=== PATIENT | male | born 2000 | race Caucasian/White ===

== ENCOUNTER 2022-05-18 02:11 | Emergency (ER) | payer OTHER ==
[~2022-05-18] VITALS: Ht 167.6 cm; Wt 74.8 kg
--- NOTE | 2022-05-18 03:05 | NUR ---
Dr. Wright at bedside. MSE in progress.
[2022-05-18] MEDS ORDERED: ONDANSETRON 4 MG/2 ML VIAL ONE (03:10)
[2022-05-18] MEDS ORDERED: IV NORMAL SALINE 1000 ML BAG IV ONE (03:15)
[2022-05-18] MEDS ORDERED: ONDANSETRON 4 MG/2 ML VIAL IV ONE (03:15)
[2022-05-18 03:29] LABS: HEMATOCRIT 48.6 % (36.7-47.1); MEAN CORPUSCULAR HEMOGLOBIN 29.1 uug (23.8-33.4); MEAN CORPUSCULAR VOLUME 83.2 fL (73.0-96.2); PLATELET COUNT (AUTO) 234 K/uL (152-348)
[2022-05-18 03:35] LABS: CREATININE 1.2 mg/dL (0.6-1.3); POTASSIUM 4.4 mmol/L (3.5-5.1)
[2022-05-18] MEDS ORDERED: DICYCLOMINE HCL LIQ 10 MG/5 ML UDC ONE (03:36)
[2022-05-18 03:41] LABS: BILIRUBIN,DIRECT 0.1 mg/dL (0.0-0.2); BILIRUBIN,TOTAL 0.4 mg/dL (0.2-1.0); TOTAL PROTEIN, SERUM 8.4 g/dL (6.4-8.2)
[2022-05-18] MEDS ORDERED: DICYCLOMINE HCL LIQ 10 MG/5 ML UDC PO ONE (03:45)
[2022-05-18] MEDS ORDERED: ONDA4TAB5 PO (04:34)
[2022-05-18] MEDS ORDERED: DICY20TA11 PO (04:34)
--- NOTE | 2022-05-18 05:06 | NUR ---
Patient discharged to home in stable condition. A/O x 4. NAD noted. Ambulatory with a steady gait. All belongings [facility]. Written and verbal after care instructions given. Patient verbalizes understanding of instructions. Stressed follow up or return to ER for worsening s/s.
[2022-05-18 05:08] VITALS: BP 144/83
== END 2022-05-18 05:09 | disposition home or self-care (01) ==
LOC: ER 02:22
DX: R10.9 Unspecified abdominal pain (principal); R11.0 Nausea; D72.829 Elevated white blood cell count, unspecified
CPT/HCPCS: 99284; 96374; 96361; 80076; 80048; 83690; 85025; 36415; 74022; J2405; J7040; A4663

== ENCOUNTER 2024-03-04 11:39 | Emergency (ER) | payer OTHER ==
[~2024-03-04] VITALS: Ht 167.6 cm; Wt 71.7 kg
[~2024-03-04 11:39] MED LIST: DICY20TA11 PO; ONDA4TAB5 PO
[2024-03-04 12:04] LABS: *BILIRUBIN,URIN NEGATIVE (NEGATIVE); *BLOOD, URINE NEGATIVE (NEGATIVE); *CLARITY,URINE CLEAR (CLEAR); *COLOR,URINE YELLOW (YELLOW); *KETONES,URINE NEGATIVE (NEGATIVE); *PROTEIN,URINE NEGATIVE (NEGATIVE); *UROBILINOGEN,URINE 0.2 E.U./dl (NORMAL); LEUKOCYTE ESTERASE ,URINE NEGATIVE (NEGATIVE); NITRITE, URINE NEGATIVE (NEGATIVE); PH,URINE 6.5 (5.0-8.0); UGLUCOSE NEGATIVE (NEGATIVE)
[2024-03-04 12:06] LABS: BASOPHILS % (AUTO) 0.5 % (0.0-2.0); EOSINOPHILS % (AUTO) 0.1 % (0.0-7.0); HEMATOCRIT 48.9 % (36.7-47.1); HEMOGLOBIN 17.1 g/dL (12.5-16.3); LYMPHOCYTES # (AUTO) 1.4 K/uL (0.8-4.8); LYMPHOCYTES % (AUTO) 16.6 % (20.5-51.5); MEAN CORPUSCULAR HGB CONC 35 g/dL (32.5-36.3); MEAN CORPUSCULAR VOLUME 82.9 fL (73.0-96.2); MONOCYTES # (AUTO) 0.4 K/uL (0.1-1.30); MONOCYTES % (AUTO) 5.2 % (0.0-11.0); NEUTROPHILS # (AUTO) 6.5 K/uL (1.8-8.9); NEUTROPHILS % (AUTO) 77.6 % (38.5-71.5); PLATELET COUNT (AUTO) 256 K/uL (152-348); RED CELL DISTRIBUTION WIDTH 12.4 % (12.1-16.2); WHITE BLOOD COUNT (AUTO) 8.4 K/uL (3.6-10.2)
[2024-03-04] MEDS ORDERED: ONDANSETRON ODT 4 MG TAB.RAPDIS ONE (12:17)
[2024-03-04] MEDS ORDERED: MAG HYDROX/AL HYDROX/SIMETH 30 ML LIQUID UDC ONE (12:17)
[2024-03-04] MEDS ORDERED: FAMOTIDINE 20 MG TABLET ONE (12:17)
[2024-03-04] MEDS ORDERED: LIDOCAINE VISCUS 2% 15 ML UDC ONE (12:17)
[2024-03-04 12:18] LABS: CALCIUM 9.8 mg/dL (8.5-10.1); POTASSIUM 3.7 mmol/L (3.5-5.1)
[2024-03-04] MEDS: MAG HYDROX/AL HYDROX/SIMETH 30 ML LIQUID UDC PO ONE (12:20)
[2024-03-04] MEDS: FAMOTIDINE 20 MG TABLET PO ONE (12:20)
[2024-03-04] MEDS: LIDOCAINE VISCUS 2% 15 ML UDC MM ONE (12:20)
[2024-03-04] MEDS: ONDANSETRON ODT 4 MG TAB.RAPDIS SL ONE (12:20)
[2024-03-04 12:22] LABS: DIFFERENTIAL COMMENT 1
[2024-03-04] MEDS ORDERED: ONDA4TAB11 PO (12:22)
[2024-03-04] MEDS ORDERED: FAMO-132 PO (12:22)
[2024-03-04 12:24] LABS: ALBUMIN 4.5 g/dL (3.4-5.0); BILIRUBIN,DIRECT 0.2 mg/dL (0.0-0.2); BILIRUBIN,TOTAL 0.9 mg/dL (0.2-1.0); TOTAL PROTEIN, SERUM 8.7 g/dL (6.4-8.2)
[2024-03-04 13:07] VITALS: BP 138/90; TEMP 97.8; O2SAT 100
== END 2024-03-04 13:08 | disposition home or self-care (01) ==
LOC: ER 11:39
DX: K30 Functional dyspepsia (principal); R11.0 Nausea; R14.0 Abdominal distension (gaseous); F17.210 Nicotine dependence, cigarettes, uncomplicated; Z79.899 Other long term (current) drug therapy; Z90.49 Acquired absence of other specified parts of digestive tract
CPT/HCPCS: 36415; 83690; 85025; A4606; A4663; Q0162